=== PATIENT | female | born 1950 ===

== ENCOUNTER 2018-12-11 06:30 | Day surgery (SDC) | payer OTHER ==
[~2018-12-11 06:30] MED LIST: ALTACE10 MG PO; PEPCID PO; ZOCOR20 MG PO
[2018-12-11] MEDS ORDERED: MACROBID 100 M100 MG PO (12:39)
[2018-12-11] MEDS ORDERED: ULTRACET PO (12:40)
== END 2018-12-11 15:45 | disposition home or self-care (01) ==
LOC: CIR.AMB 06:30
DX: N81.3 Complete uterovaginal prolapse (principal)